=== PATIENT | female | born 1950 | race Caucasian/White ===

== ENCOUNTER 2018-09-26 10:43 | Observation (INO) | payer MEDICARE ==
[~2018-09-26] VITALS: Ht 170.2 cm; Wt 75.8 kg
--- OUTSIDE RECORDS SUMMARY | 2018-09-26 10:45 | XMS REPORT ---
Author Author [facility] Address Unknown Phone Unavailable Care Team Providers Care Bolt Sawyer Name Role Phone Unavailable Unavailable Problems This patient has no known problems. Allergies, Adverse Reactions, Alerts This patient has no known allergies or adverse reactions. Medications This patient has no known medications.
--- OUTSIDE RECORDS SUMMARY | 2018-09-26 10:45 | XMS REPORT | Clinical Summary ---
Author Author [facility] Address Unknown Phone Unavailable Care Team Providers Care Sales Promotion Manager Name Role Phone Osiel Steinberg MD PCP Allergies No Known Allergies Medications End Date Status Medication Sig Dispensed Refills Start Date Active PROAIR HFA 90 Inhale 2 2 09/02/201 mcg/actuation inhaler puffs Every 6 7 hours while awake as needed (RT) for shortness of breath. Active pantoprazole (PROTONIX) Take 40 mg by 0 40 MG EC tablet mouth daily before breakfast. Active levothyroxine (UNITHROID) Take 100 mcg 0 100 mcg tablet by mouth daily before breakfast. Active hydroxychloroquine Take 200 mg 0 (PLAQUENIL) 200 mg tablet by mouth every morning. Active leflunomide (ARAVA) 20 MG Take 10 mg by 0 tablet mouth every morning. Active pravastatin (PRAVACHOL) Take 20 mg by 0 20 MG tablet mouth nightly. Active lisinopril Take 20 mg by 0 (PRINIVIL,ZESTRIL) 20 mg mouth 2 (two) tablet times a day. Active fluticasone-vilanterol Inhale 1 0 (BREO ELLIPTA) 200-25 inhalations mcg/dose blister with once daily. device powder for inhalation Active Problems Problem Noted Date Chest pain 09/15/2016 Family History Medical History Relation Name Comments Cancer Mother Relation Name Status Comments Father very young Mother lymphoma Social History Date Tobacco Use Types Packs/Day Years Used Quit: 09/16/2003 Former Smoker Cigarettes 1 20 Smokeless Tobacco: Never Used Tobacco Cessation: Counseling Given: No Alcohol Use Drinks/Week oz/Week Comments No Sex Assigned at Date Recorded Not on file Industry Job Start Date Occupation Not on file Not on file Not on file Travel End Travel History Travel Start No recent travel history available. Last Filed Vital Signs Not on file Plan of Treatment Health Maintenance Due Date Last Done Comments BREAST CANCER SCREENING 2000 COLONOSCOPY SCREENING 2000 SHINGLES VACCINES (#1) 2000 65+ PNEUMOCOCCAL VACCINE 12/12/2015 (1 of 2 - PCV13) INFLUENZA VACCINE 10/31/2018 Implants Device Identifier Shelf Expiration Date Model / Serial / Lot Implanted Type Area Manufactur er Total Hip Results Not on fileafter 09/25/2017 Insurance Type Payer Benefit Subscriber ID Effective Phone Address Plan / Dates Group HMO [employer] CIGNA xxxxxxxxxxx 2016-P [employer] resent NG HMO MCR ADV Advance Directives Patient has advance care planning documents on file. For more information, hernandez hutson contact: Aaron Sanches [address] [place] [address]
[2018-09-26] MEDS ORDERED: FAMOTIDINE 20 MG/2 ML VIAL IV STA (11:06)
[2018-09-26] MEDS ORDERED: ASPIRIN 81 MG CHEW TAB PO ONE (11:15)
--- NOTE | 2018-09-26 11:54 | NUR ---
LAB NOTIFIED OF NEED FOR LAB DRAW AT THIS TIME
[2018-09-26 12:17] LABS: BASOPHILS % 0.1 % (0.0-1.0); EOSINOPHILS # (AUTO) 0.1 (0.0-0.4); EOSINOPHILS % 1.9 % (0.0-6.0); HEMATOCRIT 25.3 % (34.2-44.1); HEMOGLOBIN 8.4 g/dL (12.0-16.0); LYMPHOCYTES % 14.5 % (18.0-39.1); MEAN CORPUSCULAR HGB CONC 33.2 g/dL (31-35); MEAN CORPUSCULAR VOLUME 69.1 fL (81-99); MONOCYTES # (AUTO) 0.3 (0.2-0.8); MONOCYTES % 4.2 % (4.4-11.3); NEUTROPHILS # (AUTO) 5.5 (2.1-6.9); NEUTROPHILS % 79.2 % (38.7-80.0); PLATELET COUNT 119 x10e3/uL (140-360); RED BLOOD COUNT 3.66 x10e6/uL (3.6-5.1); RED CELL DISTRIBUTION WIDTH 23.9 % (11.7-14.4)
[2018-09-26 13:08] LABS: ALANINE AMINOTRANSFERASE 15 IU/L (0-55); ALBUMIN 3.2 g/dL (3.5-5.0); ALBUMIN/GLOBULIN RATIO 0.9 (0.8-2.0); ALKALINE PHOSPHATASE 122 IU/L (40-150); ANION GAP 14.8 mmol/L (8-16); BLOOD UREA NITROGEN 33 mg/dL (7-26); BUN/CREATININE RATIO 22 (6-25); CALCIUM 8.3 mg/dL (8.4-10.2); CARBON DIOXIDE 13 mmol/L (22-29); CHLORIDE 96 mmol/L (98-107); CREATINE KINASE 36 IU/L (29-168); CREATININE, SERUM 1.52 mg/dL (0.57-1.11); EST GLOMERULAR FILTRATION RATE 34 ML/MIN (60-); GLUCOSE 109 mg/dL (74-118); POTASSIUM 4.8 mmol/L (3.5-5.1)
[2018-09-26 13:14] LABS: SODIUM 119 mmol/L (136-145)
--- NOTE | 2018-09-26 13:14 | NUR ---
LAB CALLED FOR CRITICAL LAB [facility] MINNA GOMES NOTIFIED
--- NOTE | 2018-09-26 13:15 | Diagnostic Imaging Report ---
EXAM: CHEST SINGLE (PORTABLE), AP Portable DATE: 09/26/2018 Time stamp on exam: 11:28 AM INDICATION: Chest pain COMPARISON: None FINDINGS: LINES/TUBES: Multiple right neck clips. LUNGS: No consolidations or edema. PLEURA: Minimal left pleural effusion. HEART AND MEDIASTINUM: Normal size and contour. BONES AND SOFT TISSUES: No acute findings. IMPRESSION: Minimal left pleural effusion. Signed by: Dr. El Feldman DO on 09/26/2018 1:12 PM
--- NOTE | 2018-09-26 13:21 | NUR ---
NOTIFIED NANETTE CYR [facility]. VERBAL ORDER RECEIVED FOR NS @ 100ML/HR.
[2018-09-26] MEDS ORDERED: SODIUM CHLORIDE 0.9% 1000ML 1,000 ML ONE (13:28)
[2018-09-26] MEDS: SODIUM CHLORIDE 0.9% 1000ML 1,000 ML IV SCH ×2 (13:31→21:48)
--- NOTE | 2018-09-26 13:32 | NUR ---
GERPHYSICAL TRAINER AT BEDSIDE FOR RE-EVAL AND DISCUSSING THE CURRENT PLAN OF CARE WITH PATIENT AND FAMILY,VERBALIZED UNDERSTANDING. NO SIGNS OF ACUTE DISTRESS NOTED AT THIS TIME.
--- OUTSIDE RECORDS SUMMARY | 2018-09-26 14:20 | XMS REPORT | Clinical Summary ---
Author Author [facility] Address Unknown Phone Unavailable Care Team Providers Care Oil Sprayer Name Role Phone Osiel Steinberg MD PCP [...] more information, hernandez hutson contact: Aaron Sanches [address] [place] [address]
--- NOTE | 2018-09-26 15:40 | NUR ---
ASKED NANETTE CYR AND DR GERARDO IF ORDER FOR NS 0.9% NEEDED TO BE CHANGED TO 3% NS FOR HYPONATREMIA, STATES NS OK TO ORDERED AND BMP TO BE DRAWN Q8 HOURS. NO NEW ORDERS NOTED AT THIS TIME.
[2018-09-26] MEDS ORDERED: ACETAMINOPHEN 325 MG TAB PO ONE (15:45)
[2018-09-26] MEDS ORDERED: METFORMIN HCL500 M1 PO (15:49)
[2018-09-26] MEDS ORDERED: POTASSIUM CHLO20 ME1 PO (15:49)
[2018-09-26] MEDS ORDERED: LOPRESSOR25 MG PO (15:49)
[2018-09-26] MEDS ORDERED: PROAIR HFA INH8.5 GM INH (15:49)
[2018-09-26] MEDS ORDERED: LIOTHYRONINE SO5 MCG PO (15:49)
[2018-09-26] MEDS ORDERED: ATORVASTATIN CA20 MG PO (15:49)
[2018-09-26] MEDS ORDERED: HYDROXYCHLOROQ200 MG PO (15:49)
[2018-09-26] MEDS ORDERED: BREO INH (15:49)
[2018-09-26] MEDS ORDERED: FUROSEMIDE40 MG PO (15:49)
[2018-09-26] MEDS ORDERED: PANTOPRAZOLE SO40 MG PO (15:49)
[2018-09-26] MEDS ORDERED: UNITHROID100 MCG PO (15:49)
[2018-09-26] MEDS ORDERED: LEFLUNOMIDE20 MG PO (15:49)
[2018-09-26] MEDS ORDERED: GABAPENTIN300 MG PO (15:49)
[2018-09-26] MEDS ORDERED: TRAMADOL HCL 50 MG TAB PO ONE (16:00)
--- NOTE | 2018-09-26 16:21 | NUR ---
REPORT CALLED TO ZORAIDA BUITRAGO AT THIS TIME
[2018-09-26] MEDS ORDERED: MORPHINE SULFATE INJ 4 MG/ML INJ 1ML IV PRN (16:30)
[2018-09-26 17:13] VITALS: BP 136/58
--- NOTE | 2018-09-26 17:40 | NUR ---
Recvd patient from ER. AAOx3, Assisted her to bed, denies any pain, not in any distress,call light in reach, at bed side
[2018-09-26 17:50] VITALS: BP 136/58
[2018-09-26 20:00] VITALS: BP_SYST 126; BP_SYST 93; BP_DIAS 62; BP_DIAS 74
--- NOTE | 2018-09-26 20:34 | NUR ---
patients temperature is 101.1. MD notified received order for tylenol 650mg q6 hours as needed for elevated temperature. also received order for blood culture x2 and Urine analysis with culture sensitivity. will continue to monitor patient.
[2018-09-26] MEDS: ACETAMINOPHEN 325 MG TAB PO PRN (21:06)
--- NOTE | 2018-09-26 21:26 | NUR ---
patient is complaining of pain in the epigastric area 08/09. MD notified, received new order for pepcid 20mg IV q12 hours for pain. will continue to monitor patient.
[2018-09-26] MEDS: FAMOTIDINE 20 MG/2 ML VIAL IV SCH (21:38)
[2018-09-26 22:19] LABS: BILIRUBIN,URINE NEGATIVE (NEGATIVE); CLARITY,URINE SL CLOUDY (CLEAR); COLOR,URINE YELLOW (YELLOW); KETONES,URINE NEGATIVE (NEGATIVE); LEUKOCYTE ESTERASE ,URINE TRACE (NEGATIVE); NITRITE,URINE NEGATIVE (NEGATIVE); PROTEIN,URINE DIPSTICK NEGATIVE (NEGATIVE); URINE UROBILINOGEN 0.2 mg/dL (0.2 - 1)
[2018-09-26 22:37] LABS: BACTERIA,URINE MANY /HPF; EPITHELIAL CELLS,URINE MODERATE /LPF; MUCUS,URINE FEW (RARE); RENAL EPITHELIAL CELLS,URINE FEW; TRANSITIONAL EPI CELLS,URINE FEW
[2018-09-27] VITALS (8 sets, daily range): BP systolic 86–113; BP diastolic 49–66
[2018-09-27] MEDS: ACETAMINOPHEN 325 MG TAB PO PRN ×3 (04:26→22:50)
[2018-09-27 05:24] LABS: BASOPHILS % 0.1 % (0.0-1.0); EOSINOPHILS % 0.3 % (0.0-6.0); HEMATOCRIT 23.8 % (34.2-44.1); HEMOGLOBIN 7.6 g/dL (12.0-16.0); LYMPHOCYTES % 12.6 % (18.0-39.1); MEAN CORPUSCULAR HEMOGLOBIN 22.8 pg (28-32); MEAN CORPUSCULAR HGB CONC 31.9 g/dL (31-35); MEAN CORPUSCULAR VOLUME 71.5 fL (81-99); MONOCYTES # (AUTO) 0.5 (0.2-0.8); MONOCYTES % 6.3 % (4.4-11.3); NEUTROPHILS # (AUTO) 6.2 (2.1-6.9); NEUTROPHILS % 80.2 % (38.7-80.0); PLATELET COUNT 110 x10e3/uL (140-360); RED BLOOD COUNT 3.33 x10e6/uL (3.6-5.1)
[2018-09-27 05:47] LABS: ANION GAP 16.1 mmol/L (8-16); CALCIUM 8.1 mg/dL (8.4-10.2); CREATININE, SERUM 1.82 mg/dL (0.57-1.11); MAGNESIUM 1.2 MG/DL (1.3-2.1); POTASSIUM 5.1 mmol/L (3.5-5.1)
--- NOTE | 2018-09-27 07:00 | NUR ---
report given to day nurse. patient is resting comfortably in bed. bed is in lowest position and call cota is within reach
[2018-09-27] MEDS: SODIUM CHLORIDE 0.9% 1000ML 1,000 ML IV SCH ×3 (08:16→21:15)
[2018-09-27] MEDS: FAMOTIDINE 20 MG/2 ML VIAL IV SCH ×2 (08:16→21:33)
--- NOTE | 2018-09-27 08:22 | NUR ---
H&P cc: epigastric/chest pain HPI: 67yoF, PCP , cardio , developed epigastric/lower chest pain. Found to have severe hyponatremia. PMH: HTN, CKD3 due to HTN, CAD s/p 2 stents in 2017, CHF, former smoker, PSHX; cholecystectomy, thyroid Allergies; see emr Fh/SH; ; quit cigs; meds; see MAR ROS: no f/c/s/N/V/D/AMATO/vision changes/skin rash/back pain/leg pain/sob v/s; revd PE: tired appearing anicteric ns1s2 mod bs soft nd no e/t a&ox3; carrasquillo skin dry n. affect Musculoskeletal; Epigastric/lower chest wall tenderness; labs/med; revd A/P: 67yoF Hyponatremia Dehydration RUTHY in CKD3 Metabolic acidosis UTI Sepsis CAD with hx stents Hx CHF Former smoker/Nicotine dependence in remission PLAN IVF monitor Na Cardiac enzymes Cardiology consult; echo Heparin TID; pepcid Heparin/ppi Toi Culp MD, PhD.
--- NOTE | 2018-09-27 08:25 | NUR ---
Addendum TO h&p H&P cc: epigastric/chest pain HPI: 67yoF, PCP , cardio , developed epigastric/lower chest pain. Found to have severe hyponatremia. PMH: HTN, CKD3 due to DM2, CAD s/p 2 stents in 2017, CHF, former smoker, DM2, DM-neuropathy PSHX; cholecystectomy, thyroid Allergies; see emr Fh/SH; ; quit cigs; meds; see MAR ROS: no f/c/s/N/V/D/AMATO/vision changes/skin rash/back pain/leg pain/sob v/s; revd PE: tired appearing anicteric ns1s2 mod bs soft nd no e/t a&ox3; carrasquillo skin dry n. affect Musculoskeletal; Epigastric/lower chest wall tenderness; labs/med; revd A/P: 67yoF Hyponatremia Dehydration RUTHY in CKD3 Metabolic acidosis UTI Sepsis CAD with hx stents Hx CHF Former smoker/Nicotine dependence in remission DM2 DM-neuropathy Thrombocytopenia PLAN IVF monitor Na Cardiac enzymes Cardiology consult; echo Heparin TID; pepcid No heparin in THrombocytopenia/ppi FOllow Na. Toi Culp MD, PhD.
[2018-09-27] MEDS ORDERED: PANTOPRAZOLE SOD 40 MG TABEC PO SCH (09:00)
--- NOTE | 2018-09-27 09:20 | NUR ---
son bringing home meds so can continue thyroid medication.
[2018-09-27] MEDS: GABAPENTIN 100 MG CAP PO SCH ×3 (09:44→21:33)
[2018-09-27] MEDS: ASPIRIN 325 MG TAB PO SCH (09:44)
[2018-09-27] MEDS: CEFTRIAXONE SOD 1 GM/NS 50 ML 50 ML IV SCH (09:45)
[2018-09-27] MEDS: PANTOPRAZOLE SOD 40 MG TABEC PO SCH (10:02)
[2018-09-27 13:15] LABS: CHOL/HDL RATIO 2.4 (3.0-3.6)
[2018-09-27] MEDS: LEVOTHYROXINE SODIUM 125 MCG TAB PO SCH (13:48)
[2018-09-27 15:12] LABS: ANION GAP 15.1 mmol/L (8-16); CALCIUM 7.9 mg/dL (8.4-10.2); CREATININE, SERUM 1.64 mg/dL (0.57-1.11); POTASSIUM 5.1 mmol/L (3.5-5.1)
[2018-09-27 20:43] LABS: ANION GAP 16.7 mmol/L (8-16); CREATININE, SERUM 1.54 mg/dL (0.57-1.11); POTASSIUM 4.7 mmol/L (3.5-5.1)
[2018-09-27] MEDS ORDERED: ATORVASTATIN 40 MG TAB PO SCH (21:00)
--- NOTE | 2018-09-27 22:51 | NUR ---
PATIENT C/O PAIN TO THE RIGHT SIDE OF THE CHEST WITH PAIN SCORE #7, MEDICATED WITH TYLENOL ORDERED. SHE'S SITTING AT THE SIDE OF THE BED, CALL LIGHT WITHIN EASY REACH AND HER IS AT THE BEDSIDE. WILL REASSESS FOR EFFECTIVENESS.
--- NOTE | 2018-09-28 00:56 | NUR ---
PATIENT IS SOUNDLY ASLEEP, NO ACUTE DISTRESS OBSERVED, CALL LIGHT WITHIN EASY REACH.
--- NOTE | 2018-09-28 04:09 | NUR ---
CONDITION STABLE WITHOUT ACUTE DISTRESS, PATIENT DENIES PAIN AT THIS TIME.
--- NOTE | 2018-09-28 04:24 | NUR ---
NOTIFIED BY DESK ASSISTANT THAT THE PATIENT'S RHYTHM IS 1-FIB WITH RVR RATE 149. UPON ASSESSMENT THE PATIENT IS STABLE, SHE STATED "I'M FINE. SOME TIMES MY HEART BEAT FAST AT HOME." SHE'S NOW BACK IN SINUS RHYTHM, WILL NOTIFY ATTENDING PHYSICIAN OF THE ABNORMAL RHYTHM STRIP IN THE MORNING WHEN HE MAKE ROUNDS.
[2018-09-28 04:45] VITALS: BP 116/64
--- NOTE | 2018-09-28 05:02 | NUR ---
IM- Progress note O/N no events ROS: no f/c/s/N/V/D/AMATO/vision changes/skin rash/back pain/leg pain/sob v/s; revd PE: tired appearing anicteric ns1s2 mod bs soft nd no e/t a&ox3; carrasquillo skin dry n. affect Musculoskeletal; Epigastric/lower chest wall tenderness; labs/med; revd A/P: 67yoF Hyponatremia Dehydration RUTHY in CKD3 Metabolic acidosis UTI Sepsis CAD with hx stents Hx CHF Former smoker/Nicotine dependence in remission DM2 DM-neuropathy Thrombocytopenia PLAN IVF monitor Na Cardiac enzymes Cardiology consult; echo Heparin TID; pepcid No heparin in THrombocytopenia/ppi FOllow Na. 09/28 pt wants to leave AMA. Toi Culp MD, PhD.
[2018-09-28] MEDS: LEVOTHYROXINE SODIUM 125 MCG TAB PO SCH (06:02)
[2018-09-28 08:08] VITALS: BP 137/70
[2018-09-28 08:30] VITALS: BP 137/70
[2018-09-28] MEDS: FAMOTIDINE 20 MG/2 ML VIAL IV SCH (08:30)
[2018-09-28] MEDS: PANTOPRAZOLE SOD 40 MG TABEC PO SCH (08:30)
[2018-09-28] MEDS: ASPIRIN 325 MG TAB PO SCH (08:30)
[2018-09-28] MEDS: GABAPENTIN 100 MG CAP PO SCH (08:30)
[2018-09-28] MEDS: CEFTRIAXONE SOD 1 GM/NS 50 ML 50 ML IV SCH (08:30)
--- NOTE | 2018-09-28 09:35 | NUR ---
based on nursing judgement ordered stat EKG for patient who shows to be running AFib suddenly. Checked on patient who is lying still in bed and states she can feel her heartbeat racing and reports having felt this way several times. Left message for faculty physician glue bone crusher, waiting for further instructions.
--- NOTE | 2018-09-28 10:01 | NUR ---
patient upset and is refusing STAT EKG. patient refusing any further treatment stating she doesn't "feel safe" staying here, that this is still her life and she doesn't want to yet. explained to the patient the reason for the EKG ordered and that the MD has been called for further instructions. patient still refuses further treatment and states she is leaving the hospital now. AMA form printed out and signed by patient after informing the patient the risks of leaving. patient states she does not care and will not wait here any longer for "nothing to be done." AMA form signed, at bedside to take home.
[2018-09-28 10:05] LABS: ANION GAP 15.8 mmol/L (8-16); CREATININE, SERUM 1.29 mg/dL (0.57-1.11); POTASSIUM 4.8 mmol/L (3.5-5.1)
--- NOTE | 2018-09-28 20:38 | NUR ---
D/C summary Pt left AMA. Details of care; Principal dx: Hyponatremia Dehydration RUTHY in CKD3 Metabolic acidosis UTI Sepsis Secondary Dx: CAD with hx stents Hx CHF Former smoker/Nicotine dependence in remission DM2 DM-neuropathy Thrombocytopenia PLAN IVF monitor Na Cardiac enzymes Cardiology consult; echo Heparin TID; pepcid No heparin in THrombocytopenia/ppi FOllow Na. 09/28 pt wants to leave AMA. Pt left AMA. she should f/u with PCP anyway. Toi Culp MD, PhD.
== END 2018-09-28 10:00 | disposition left against medical advice (07) ==
LOC: ER 10:43 → ERHOLD 14:18 → IMCU 17:02
PROVIDERS: ADMIT Internal Medicine; ATTEND Internal Medicine
DX: A41.9 Sepsis, unspecified organism (principal); R07.89 Other chest pain; E87.1 Hypo-osmolality and hyponatremia; I12.9 Hypertensive chronic kidney disease with stage 1 through stage 4 chronic kidney disease, or unspecified chronic kidney disease; N18.3 Chronic kidney disease, stage 3 (moderate); I25.10 Atherosclerotic heart disease of native coronary artery without angina pectoris; Z95.5 Presence of coronary angioplasty implant and graft; Z87.891 Personal history of nicotine dependence; N17.9 Acute kidney failure, unspecified; E87.2 Acidosis; N39.0 Urinary tract infection, site not specified; E11.42 Type 2 diabetes mellitus with diabetic polyneuropathy; E11.22 Type 2 diabetes mellitus with diabetic chronic kidney disease; E86.0 Dehydration; D69.6 Thrombocytopenia, unspecified; Z79.84 Long term (current) use of oral hypoglycemic drugs
CPT/HCPCS: 36415 ×3; 71045; 80048 ×2; 80053; 80061; 81001; 82550; 82553; 83036; 83735; 83880; 84484; 85025 ×2; 87040; 87086; 93005; 93306; 96376; 99284; G0378 ×3; J0696 ×2; J2270; J7030 ×3; S0164 ×2; 96374